=== PATIENT | female | born 1980 | race Caucasian/White ===

== ENCOUNTER 2019-11-04 18:04 | Inpatient (IN) | payer BC ==
[~2019-11-04] VITALS: Ht 175.3 cm; Wt 69.3 kg
--- NOTE | 2019-11-04 18:35 | PHYS DOC ---
Past Medical History Past Medical History: Anxiety Past Surgical History: No Surgical History Smoking Status: Never Smoker Alcohol Use: Heavy General Adult EDM: Chief Complaint: CHEST PAIN HPI: HPI: Patient is a 39 year old female who presents with complaints of chest pain. Patient reports that she was at the gym today and had been on the elliptical machine for about 5 minutes when she felt disconnected from the environment, associated with acute onset of diaphoresis, tingling going from the head into the arms, a hot feeling as well as chest pain. She reports this is a sharp pain that went from the back between the shoulder blades towards the left anterior chest wall. This lasted about 2 minutes and then resolved spontaneously. She felt poorly for about 5 to 10minutes. Patient denied any change in special senses, states that she is felt a change in exercise tolerance in the last few weeks noting that she is having some shortness of breath when she goes upstairs that is unusual. She reports that her work-ups have been okay and denies any chest pain with exercise. She also reports that she has been feeling well before this happened other than the above-mentioned shortness of breath, and that she is now back to baseline. Review of Systems: Review of Systems: Constitutional: Denies fever or chills. [] Eyes: Denies change in visual acuity. [] HENT: Denies nasal congestion or sore throat. [] Respiratory: See HPI. [] Cardiovascular: See HPI [] GI: Denies abdominal pain, nausea, vomiting, bloody stools or diarrhea. [] : Denies dysuria. [] Musculoskeletal: Denies back pain or joint pain. [] Integument: Denies rash. [] Neurologic: Denies headache, focal weakness.[] Endocrine: Denies polyuria or polydipsia. [] Lymphatic: Denies swollen glands. [] Psychiatric: Denies depression or anxiety. [] Heart Score: Risk Factors: Risk Factors: DM, Current or recent (<one month) smoker, HTN, HLP, family history of CAD, obesity. Risk Scores: Score 0 - 3: 2.5% MACE over next 6 weeks - Discharge Home Score 4 - 6: 20.3% MACE over next 6 weeks - Admit for Clinical Observation Score 7 - 10: 72.7% MACE over next 6 weeks - Early Invasive Strategies Allergies: Allergies: Allergies Coded Allergies Type Severity Reaction Last Updated Verified No Known Drug Allergies 11/04/19 No Physical Exam: PE: Constitutional: Well developed, well nourished, no acute distress, non-toxic appearance. [] HENT: Normocephalic, atraumatic, bilateral external ears normal, oropharynx moist, no oral exudates, nose normal. [] Eyes: PERRLA, EOMI, conjunctiva normal, no discharge. [] Neck: Normal range of motion, no tenderness, supple, no stridor. [] Cardiovascular:Heart rate regular rhythm, no murmur, no S3, no S4, no shift of POMI, pulses 2 out of 2 in the dorsalis pedis bilaterally [] Lungs & Thorax: Bilateral breath sounds clear to auscultation [] Abdomen: Bowel sounds normal, soft, no tenderness, no masses, no pulsatile masses. [] Skin: Warm, dry, no erythema, no rash. [] Back: No tenderness, no CVA tenderness. [] Extremities: No tenderness, no cyanosis, no clubbing, ROM intact, no edema. [] Neurologic: Alert and oriented X 3, normal motor function, normal sensory function, no focal deficits noted. [] Psychologic: Affect FRIGHTENED, judgement normal, mood ANXIOUS [] EKG: EKG: Heart rate 65 bpm, rightward axis, QRS widening with consideration of a right bundle branch block, T wave inversion in V2 [address] segment depression, consistent with ischemia VS OTHERS, abnormal ECG 2005 ECG heart rate 64 bpm, normal sinus rhythm, PAC, rightward axis, incomplete right bundle branch block, improvement of the ST segment depression in leads V2 through V4. [] Radiology/Procedures: Radiology/Procedures: [] Course & Med Decision Making: Course & Med Decision Making Pertinent Labs and Imaging studies reviewed. (See chart for details) 2026-patient was seen and reevaluated. Patient does have some mild orthostatic hypotension and was treated with some IV fluids for that. Her elevated troponin however with is concerning especially given her symptomatology. I discussed the case with Dr. Nobles who suggested we do a CTA of her chest and or wanted an echocardiogram. I also discussed the case with Dr. Harrison who agreed to admit the patient. Patient remains chest pain-free and is stable at this time. Note that the ST segment have resolved on her ECG [] Dragon Disclaimer: Petar Disclaimer: This electronic medical record was generated, in whole or in part, using a voice recognition dictation system. Departure Departure Impression: Primary Impression: Neurocardiogenic pre-syncope Additional Impressions: Elevated troponin I level Mild dehydration Referrals: UNKNOWN PCP NAME (PCP) Justicifation of Admission Dx: Justifications for Admission: Justification of Admission Dx: Yes Comments: Elevated troponin NIHSS Stroke Scale NIH Stroke Scale: NIH Stroke Scale Response (Comments) Value Level of Consciousness: 0 Alert/Responsive 0 LOC Questions: 0 Answers both correctly 0 LOC Commands: 0 Performs both tasks 0 Best Gaze: 0 Normal 0 Visual: 0 No visual loss 0 Facial Palsy: 0 Normal, symmetrical 0 Motor - Left Arm 0 No drift 0 Motor - Right Arm 0 No drift 0 Motor - Left Leg 0 No drift 0 Motor: Right Leg 0 No drift 0 Limb Ataxia: 0 Absent 0 Sensory: 0 No loss 0 Best Language: 0 Normal 0 Dysathria: 0 Normal 0 Extinction and Inattention: 0 Normal 0 Total 0 KASHMIR LEMON MD Nov 04, 2019 18:34
[2019-11-04 18:41] LABS: BASO # 0.1 x10^3/uL (0.0-0.2); BASO % 1 % (0-3); EOS # 0.1 x10^3/uL (0.0-0.7); EOS % 1 % (0-3); HEMATOCRIT 36.2 % (36.0-47.0); HEMOGLOBIN 12.1 g/dL (12.0-15.5); LYMPH # 1.4 x10^3/uL (1.0-4.8); LYMPH % 17 % (24-48); MEAN CORPUSCULAR HEMOGLOBIN 29 pg (25-35); MEAN CORPUSCULAR HGB CONC 33 g/dL (31-37); MEAN CORPUSCULAR VOLUME 88 fL (79-100); MONO # 0.7 x10^3/uL (0.0-1.1); MONO % 8 % (0-9); NEUT # 6.2 x10^3/uL (1.8-7.7); NEUT % 73 % (31-73); PLATELET COUNT 224 x10^3/uL (140-400); RED BLOOD COUNT 4.13 x10^6/uL (3.50-5.40); RED CELL DISTRIBUTION WIDTH 14.4 % (11.5-14.5); WHITE BLOOD COUNT 8.5 x10^3/uL (4.0-11.0)
[2019-11-04] MEDS ORDERED: IV NORMAL SALINE 1000ML BAG 1,000 ML IV ONE (18:45)
[2019-11-04 18:51] LABS: PROTHROMBIN TIME PATIENT 13.8 SEC (11.7-14.0)
[2019-11-04 18:58] LABS: BILIRUBIN,URINE NEGATIVE (NEG); CLARITY,URINE CLEAR; COLOR,URINE YELLOW; NITRITE,URINE NEGATIVE (NEG); PROTEIN,URINE NEGATIVE (NEG-TRACE); UROBILINOGEN,URINE 0.2 mg/dL (0.2 mg/dL)
[2019-11-04 19:04] LABS: BACTERIA,URINE MODERATE /HPF (0-FEW); SQUAMOUS EPITHELIAL CELL,UR MOD /LPF
[2019-11-04 19:05] LABS: BARBITURATES NEG (NEG); BENZODIAZEPINES NEG (NEG); CANNABINOIDS NEG (NEG); COCAINE NEG (NEG); METHADONE NEG (NEG); OPIATES NEG (NEG); PHENCYCLIDINE NEG (NEG); RBC,URINE 0 /HPF (0-2)
[2019-11-04 19:06] LABS: AMPHETAMINE/METHAMPHETAMINE NEG (NEG)
--- NOTE | 2019-11-04 19:09 | EKG ---
[facility] [address] [place] [address] Test Date: 2019-11-04 Test Time: 18:06:38 Pat Name: DERBA ADEN Department: Room: Gender: F Design Engineering Intern: : 1980 Requested By: KASHMIR LEMON Order Number: [id number] Reading MD: Darrick Coburn MD Measurements Intervals [place] Rate: 65 P: 61 [place]: 124 QRS: 99 QRSD: 118 T: 33 QT: 446 QTc: 465 Interpretive Statements SINUS RHYTHM RBBB Electronically Signed On 11-06-2019 13:47:48 CDT by Darrick Coburn MD
[2019-11-04 19:32] LABS: CALCIUM 8.9 mg/dL (8.5-10.1); CREATININE 0.8 mg/dL (0.6-1.0); GFR 80.3; POTASSIUM 3.8 mmol/L (3.5-5.1)
[2019-11-04 19:37] LABS: ALBUMIN 3.9 g/dL (3.4-5.0); ALBUMIN/GLOBULIN RATIO 1.2 (1.0-1.7); MAGNESIUM 1.9 mg/dL (1.8-2.4); TOTAL BILIRUBIN 0.5 mg/dL (0.2-1.0); TOTAL PROTEIN 7.2 g/dL (6.4-8.2)
[2019-11-04] MEDS ORDERED: ASPIRIN CHEWABLE 81 MG TABLET. PO ONE (19:45)
--- NOTE | 2019-11-04 20:06 | RAD ---
Study: CR CHEST PA LATERAL Indication: Chest pain. Comparison: None. Findings: The cardiomediastinal silhouette and reshma are unremarkable. No lobar consolidation, pleural effusion or pneumothorax. The lungs are hyperexpanded but the AP dimension of the thoracic cavity is not increased suggesting this to be physiologic from aggressive inspiratory excursion. Grossly intact osseous structures. Impression: No acute radiographic abnormality of the chest. Electronically signed by: KALI VASQUEZ MD (11/04/2019 8:04 PM) [id number]
[2019-11-04 20:40] LABS: U PREG PATIENT NEGATIVE (NEG)
[2019-11-04] MEDS ORDERED: ACETAMINOPHEN 325 MG TABLET. PO PRN (20:45)
[2019-11-04] MEDS ORDERED: CONTRAST GIVEN. MC PRN (20:45)
[2019-11-04] MEDS ORDERED: IOHEXOL 350 MG/ML 100 ML VIAL. IV ONE (21:00)
--- NOTE | 2019-11-04 21:23 | RAD ---
Study: CT CHEST WITH CONTRAST - PULMONARY ANGIOGRAM History: Chest pain. Comparison: None. Technique: Helical CT of the chest performed after the administration of 100 cc Omnipaque 350 intravenous contrast and timed for angiographic evaluation of the pulmonary arteries per PE protocol. Coronal and sagittal 3D MIP reformations were obtained. One or more of the following individualized dose reduction techniques were utilized for this examination: 1. Automated exposure control 2. Adjustment of the mA and/or kV according to patient size 3. Use of iterative reconstruction technique. Findings: Pulmonary Arteries: No main, lobar or segmental pulmonary embolism. Heart/Systemic Vasculature: Nonaneurysmal aorta. The visualized great vessels are patent. The left vertebral artery originates from the arch. No CT findings of overt right heart strain. Mediastinum: Within normal limits. Lungs: No airspace infiltrate, suspicious nodule, pleural effusion or pneumothorax. Neck/Axilla/Body Wall: Unremarkable. Upper Abdomen: No acute abnormality. Bones: No acute or aggressive osseous process. Mild levocurvature at the upper thoracic spine. Miscellaneous: None. IMPRESSION: No pulmonary embolism or other acute abnormality is seen to account for the patient's symptoms. Electronically signed by: KALI VASQUEZ MD (11/04/2019 9:20 PM) [id number]
[2019-11-04 22:37] VITALS: BP 117/62
[2019-11-04] MEDS ORDERED: ACET500T68 PO (23:25)
[2019-11-04] MEDS ORDERED: IBUP200T77 PO (23:25)
[2019-11-04 23:59] VITALS: BP 118/63
[2019-11-05] VITALS (18 sets, daily range): BP systolic 99–119; BP diastolic 48–77
[2019-11-05] MEDS ORDERED: HEPARIN for IV BOLUS 10,000 UNIT/10 ML VIAL. IV PRN (00:30)
[2019-11-05] MEDS ORDERED: HEPARIN 25,000UTS/250ML PREMIX 250 ML IV PRN (00:30)
[2019-11-05] MEDS ORDERED: ANTI-COAG MONITOR BY PHARMACY. MC PRN (00:45)
[2019-11-05] MEDS: AMIODARONE 450 MG in IV DEXTROSE 5% 250 ML IV PRN ×2 (00:50→09:55)
[2019-11-05] MEDS ORDERED: AMIODARONE 150 MG in IV DEXTROSE 5% 100ML 100 ML IV ONE (01:00)
--- NOTE | 2019-11-05 01:06 | NUR ---
This software writer signed into [employer] for this patient, scanned meds,and entered rate, etc, per assistance of Landon Ni and Taya Hassan
--- NOTE | 2019-11-05 08:11 | EKG ---
[facility] [address] [place] [address] Test Date: 2019-11-04 Test Time: 20:06:35 Pat Name: DEBRA ADEN Department: Room: Gender: F Facilities Operations Technician: : 1980 Requested By: KASHMIR LEMON Order Number: [id number] Reading MD: Measurements Intervals [place] Rate: 64 P: 56 [place]: 122 QRS: 100 QRSD: 116 T: 43 QT: 456 QTc: 475 Interpretive Statements SINUS RHYTHM ATRIAL PREMATURE COMPLEX(ES) RIGHTWARD AXIS INCOMPLETE RIGHT BUNDLE BRANCH BLOCK PROLONGED QT NO SPECIFIC ECG ABNORMALITIES RI6.01 No previous ECG available for comparison
--- NOTE | 2019-11-05 09:04 | PDOC2 ---
CARDIAC CONSULT DATE OF CONSULT Date of Consult DATE: 11/05/19 TIME: 08:50 REASON FOR CONSULT Reason for Consult: Elevated troponin REFERRING PHYSICIAN Referring Physician: Zaid SOURCE Source: Chart review, Patient HISTORY OF PRESENT ILLNESS HISTORY OF PRESENT ILLNESS This is a pleasant 39 yo active female admitted for complains of chest pain and dizziness. Reports that in the last 2 weeks she has been having episode of palpitations and pccasional dizziness. Also with some diaphoresis. She has noticed herself feeling more fatigue lately and gradually having some dyspnea with exertion just going upstairs in their 2 story house. She works out 3x a week starting of with about 15 min of cardio and 30 min of lifting wts. No recent injuries, falls or MVA. Yesterday she was at the gym and 4 minutes into elliptical she just had to stop since she started having shooting pain between her shoulder blades and also in her chest and some numbness to her arms and felt all the plethora of symptoms as mentioned. No passing out but still having some intermittent palpitations and dizziness. Positive for nausea as well. As an inpt she has had bouts of NSVT. Denies any childhood heart disease. No hx of VTE, recent infection, arrhythmias or CAD. No intractable coughing, no hx of bleeding or PUD. She does not have any significnat risk factors for CAD. 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 She is not on any medications. PAST MEDICAL HISTORY Past Medical History HPV, anxiety PAST SURGICAL HISTORY Past Surgical History: No pertinent history FAMILY HISTORY Family History noncontributory to CV SOCIAL HISTORY Smoke: No ALCOHOL: occassional Drugs: None Lives: with Family CURRENT MEDICATIONS CURRENT MEDICATIONS Current Medications Medications (Trade) Dose Ordered Sig/Davdi Route PRN Reason Start Time Stop Time Status Last Admin Dose Admin Sodium Chloride 1,000 ml @ 1,000 mls/hr 1X ONCE IV 11/04/19 18:45 11/04/19 19:44 DC 11/04/19 18:45 Iohexol (Omnipaque 350 Mg/ml) 100 ml 1X ONCE IV 11/04/19 21:00 11/04/19 21:01 DC 11/04/19 21:07 Amiodarone HCl 150 mg/Dextrose 103 ml @ 618 mls/hr 1X ONCE IV 11/05/19 01:00 11/05/19 02:12 DC 11/05/19 00:47 Amiodarone HCl 450 mg/Dextrose 259 ml @ 0 mls/hr CONT PRN IV SEE I/O RECORD 11/05/19 01:00 11/06/19 00:59 11/05/19 00:50 Info (Anti-Coagulation Monitoring By Pharmacy) 1 each PRN DAILY PRN MC SEE COMMENTS 11/05/19 00:45 11/05/19 00:39 ALLERGIES ALLERGIES: Coded Allergies: No Known Drug Allergies (Unverified , 11/04/19) ROS Review of System 14 point ROS evaluated with pertinent positives noted per HPI PHYSICAL EXAM General: Alert, Oriented X3, Cooperative HEENT: Atraumatic, Mucous membr. moist/pink Lungs: Clear to auscultation, Normal air movement Heart: Regular rate (SR), Normal S1, Normal S2, No murmurs Abdomen: Soft, No tenderness Extremities: No cyanosis, No edema Skin: No breakdown, No significant lesion Neuro: Normal speech, Sensation intact Psych/Mental Status: Mental status NL, Mood NL MUSCULOSKELETAL: Full range of motion without pain VITALS/I&O VITALS/I&O: Vital Signs Date Time Temp Pulse Resp B/P (MAP) Pulse Ox O2 Delivery O2 Flow Rate FiO2 11/05/19 03:00 98.0 81 20 111/57 (75) 100 Room Air 98.0 I & O 11/04/19 11/04/19 11/05/19 15:00 23:00 07:00 Intake Total 1000 ml 1100 ml Output Total 2150 ml Balance 1000 ml -1050 ml LABS Lab: Laboratory Tests Test 11/04/19 18:20 11/04/19 18:45 11/04/19 18:59 11/04/19 22:23 White Blood Count 8.5 x10^3/uL (4.0-11.0) Red Blood Count 4.13 x10^6/uL (3.50-5.40) Hemoglobin 12.1 g/dL (12.0-15.5) Hematocrit 36.2 % (36.0-47.0) Mean Corpuscular Volume 88 fL (79-100) Mean Corpuscular Hemoglobin 29 pg (25-35) Mean Corpuscular Hemoglobin Concent 33 g/dL (31-37) Red Cell Distribution Width 14.4 % (11.5-14.5) Platelet Count 224 x10^3/uL (140-400) Neutrophils (%) (Auto) 73 % (31-73) Lymphocytes (%) (Auto) 17 % (24-48) L Monocytes (%) (Auto) 8 % (0-9) Eosinophils (%) (Auto) 1 % (0-3) Basophils (%) (Auto) 1 % (0-3) Neutrophils # (Auto) 6.2 x10^3/uL (1.8-7.7) Lymphocytes # (Auto) 1.4 x10^3/uL (1.0-4.8) Monocytes # (Auto) 0.7 x10^3/uL (0.0-1.1) Eosinophils # (Auto) 0.1 x10^3/uL (0.0-0.7) Basophils # (Auto) 0.1 x10^3/uL (0.0-0.2) Prothrombin Time 13.8 SEC (11.7-14.0) Prothrombin Time INR 1.1 (0.8-1.1) Activated Partial Thromboplast Time 25 SEC (24-38) Urine Collection Type Unknown Urine Color Yellow Urine Clarity Clear Urine pH 6.0 (<5.0-8.0) Urine Specific [place] 1.015 (1.000-1.030) Urine Protein Negative mg/dL (NEG-TRACE) Urine Glucose (UA) Negative mg/dL (NEG) Urine Ketones (Stick) 40 mg/dL (NEG) Urine Blood Negative (NEG) Urine Nitrite Negative (NEG) Urine Bilirubin Negative (NEG) Urine Urobilinogen Dipstick 0.2 mg/dL (0.2 mg/dL) Urine Leukocyte Esterase Large (NEG) Urine RBC 0 /HPF (0-2) Urine WBC 5-10 /HPF (0-4) Urine Squamous Epithelial Cells Mod /LPF Urine Bacteria Moderate /HPF (0-FEW) Urine Mucus Mod /LPF Urine Test Negative (NEG) Urine Opiates Screen Neg (NEG) Urine Methadone Screen Neg (NEG) Urine Barbiturates Neg (NEG) Urine Phencyclidine Screen Neg (NEG) Urine Amphetamine/Methamphetamine Neg (NEG) Urine Benzodiazepines Screen Neg (NEG) Urine Cocaine Screen Neg (NEG) Urine Cannabinoids Screen Neg (NEG) Urine Ethyl Alcohol Neg (NEG) Sodium Level 139 mmol/L (136-145) Potassium Level 3.8 mmol/L (3.5-5.1) Chloride Level 103 mmol/L (98-107) Carbon Dioxide Level 23 mmol/L (21-32) Anion Gap 13 (6-14) Blood Urea Nitrogen 12 mg/dL (7-20) Creatinine 0.8 mg/dL (0.6-1.0) Estimated GFR (Cockcroft-Gault) 80.3 BUN/Creatinine Ratio 15 (6-20) Glucose Level 117 mg/dL (70-99) H Lactic Acid Level 1.9 mmol/L (0.4-2.0) Calcium Level 8.9 mg/dL (8.5-10.1) Magnesium Level 1.9 mg/dL (1.8-2.4) Total Bilirubin 0.5 mg/dL (0.2-1.0) Aspartate Amino Transferase (AST) 18 U/L (15-37) Alanine Aminotransferase (ALT) 21 U/L (14-59) Alkaline Phosphatase 52 U/L (46-116) Troponin I Quantitative 0.071 ng/mL (0.000-0.055) 3.087 ng/mL (0.000-0.055) JX-Gvu-L-Type Natriuretic Peptide 29 pg/mL (0-124) Total Protein 7.2 g/dL (6.4-8.2) Albumin 3.9 g/dL (3.4-5.0) Albumin/Globulin Ratio 1.2 (1.0-1.7) Thyroid Stimulating Hormone (TSH) 2.893 uIU/mL (0.358-3.74) Test 11/05/19 08:05 Troponin I Quantitative 25.974 ng/mL (0.000-0.055) Laboratory Tests 11/04/19 18:20 Laboratory Tests 11/04/19 18:59 ASSESSMENT/PLAN ASSESSMENT/PLAN 1. NSTEMI: possible SCAD 2. New RBBB: trop at 26 3. Excessive caffeine use 4. NSVT 5. UTI: per PCP Recommendations 1. Mg replacement. check lipids, TSH and TTE 2. LHC today, risks and benefits discussed with pt and spouse, agreeable to proceed 3. Heparin drip ongoing and amiodarone. DAY SAMPSON APRN Nov 05, 2019 09:04
--- NOTE | 2019-11-05 09:39 | NUR ---
SS following for discharge planning. SS reviewed pt chart and discussed with pt RN. Pt is from home with spouse and is currently on room air. Pt on Heparin and Amiodarone drip. Pt scheduled for heart cath today. SS will continue to follow for discharge planning.
[2019-11-05] MEDS ORDERED: MAGNESIUM SULFATE 2GM 50 ML IV ONE (09:45)
[2019-11-05 10:08] LABS: CHOLESTEROL/HDL RATIO 1.4
[2019-11-05] MEDS ORDERED: LIDOCAINE 1% Multi-Dose 20 ML VIAL. ONE (10:35)
[2019-11-05] MEDS ORDERED: HEPARIN for ARTERIAL LINE 1,500 ML ONE (10:35)
[2019-11-05] MEDS ORDERED: IOHEXOL 300 MG/ML 100ML VIAL. ONE (10:35)
[2019-11-05] MEDS ORDERED: MIDAZOLAM HCL/PF 5 MG/5 ML VIAL. ONE (10:48)
[2019-11-05] MEDS ORDERED: fentaNYL PF VIAL 100 MCG/2 ML VIAL ONE (10:48)
--- NOTE | 2019-11-05 11:02 | PDOC ---
MODERATE SEDATION ASSESSMENT RISKS/ALTERNATIVES Risks/Alternatives Risks and alternatives of this type of sedation and procedure discussed with: RISK/ALTERNATIVES: Patient H & P ON CHART H & P H & P on chart and reviewed for co-morbid conditions and appropriate labs. H&P ON CHART: Yes STATUS PREG STATUS ASSESSED: Yes MEDS/ALLERGIES REVIEWED Meds/Allergies Reviewed Medications and Allergies including time and route of recently administered narcotics and sedatives. MEDS/ALLERGIES REVIEWED: Yes ASA RATING ASA RATING: II AIRWAY ASSESSMENT Airway Assessment Airway patency, oral function limitations, presence of caps, crowns, dentures, partials, and ability to extend neck assessed. AIRWAY ASSESSMENT: Yes MALLAMPATI SCORE MALLAMPATI SCORE: II PRE-SEDATION ASSESSMENT PRE-SEDATION ASSESSMENT: Yes PARK SANCHEZ MD Nov 05, 2019 11:02
[2019-11-05] MEDS ORDERED: IOHEXOL 300 MG/ML 100ML VIAL. IART ONE (11:30)
[2019-11-05] MEDS ORDERED: MIDAZOLAM HCL/PF 5 MG/5 ML VIAL. IV ONE (11:30)
[2019-11-05] MEDS ORDERED: LIDOCAINE 1% Multi-Dose 20 ML VIAL. INJ ONE (11:30)
[2019-11-05] MEDS ORDERED: fentaNYL PF VIAL 100 MCG/2 ML VIAL IV ONE (11:30)
[2019-11-05] MEDS ORDERED: CONTRAST GIVEN. MC PRN (11:45)
[2019-11-05] MEDS ORDERED: 0.9 % SODIUM CHLORIDE 10 ML DISP.SYRIN. IV PRN (12:00)
[2019-11-05] MEDS ORDERED: NITROGLYCERIN SUBLINGUAL 0.4 MG BOTTLE OF 25. SL PRN (12:00)
[2019-11-05] MEDS ORDERED: IV NORMAL SALINE 1000ML BAG 1,000 ML IV SCH (12:00)
[2019-11-05] MEDS ORDERED: AMIODARONE 450 MG in IV DEXTROSE 5% 250 ML IV PRN (13:00)
[2019-11-05] MEDS ORDERED: METHOCARBAMOL 750 MG TABLET PO PRN (14:30)
--- NOTE | 2019-11-05 14:33 | PDOC1 ---
History and Physical Date of Admission Date of Admission 11/05/2019 Identification/Chief Complaint Chief Complaint My chest hurts Source Source: Chart review, Patient History of Present Illness History of Present Illness Patient is a 39-year-old female with no significant past medical history who was in her usual state of health until approximately 2 weeks prior to her admission when she started complaining of palpitations and lightheadedness. The patient described the pain review of systems pertinent as per HPI otherwise 14 point review of system is negative a sharp discomfort over the precordial area that radiated to the back and no radiation to the jaw or the arm was reported. This was in the setting of exercising and an elliptical machine. The patient denied any dyspnea on exertion she denied orthopnea paroxysmal nocturnal dyspnea. Patient did not have sensation of impending doom or diaphoresis with the event. Patient denies loss of consciousness no neurological deficits no dysphagia o dynophagia no abdominal pain no nausea vomiting diarrhea and no urinary symptoms either. Patient had progressive nature of her symptoms and decided to consult the emergency department where she was found to have an elevated troponin and he was evaluated by cardiology very promptly and taken to the cardiac English Language Learner Teacher for evaluation. Past Medical History Past Medical History anxiety Past Surgical History Past Surgical History: No pertinent history Family History Family History: Other Social History Smoke: No ALCOHOL: occassional Drugs: None Current Problem List Problem List Problems Medical Problems: (1) Elevated troponin I level Status: Acute (2) Mild dehydration Status: Acute (3) Neurocardiogenic pre-syncope Status: Acute Current Medications Current Medications Current Medications Medications (Trade) Dose Ordered Sig/David Start Time Stop Time Status Last Admin Dose Admin Acetaminophen (Tylenol) 650 mg PRN Q4HRS PRN 11/04/19 20:45 11/05/19 20:44 Amiodarone HCl 150 mg/Dextrose 103 ml @ 618 mls/hr 1X ONCE 11/05/19 01:00 11/05/19 02:12 DC 11/05/19 00:47 618 MLS/HR Amiodarone HCl 450 mg/Dextrose 259 ml @ 0 mls/hr CONT PRN 11/05/19 13:00 Aspirin (Aspirin Chewable) 162 mg 1X ONCE 11/04/19 19:45 11/04/19 19:46 DC Aspirin (Ecotrin) 81 mg [id number] 11/06/19 08:00 Fentanyl Citrate (Fentanyl 2ml Vial) 100 mcg 1X ONCE 11/05/19 11:30 11/05/19 11:42 DC 11/05/19 11:55 37.5 MCG Heparin Sodium (Porcine) (Heparin Sodium) 1,750 unit PRN Q6HRS PRN 11/05/19 00:30 Heparin Sodium/ Dextrose 250 ml @ 0 mls/hr CONT PRN 11/05/19 00:30 Heparin Sodium/ Sodium Chloride (HEPARIN for ARTERIAL LINE FLUSH) 1,000 unit 1X ONCE 11/05/19 11:30 11/05/19 11:42 DC 11/05/19 11:52 1,000 UNIT Info (Anti-Coagulation Monitoring By Pharmacy) 1 each PRN DAILY PRN 11/05/19 00:45 11/05/19 00:39 1 EACH Info (CONTRAST GIVEN -- Rx MONITORING) 1 each PRN DAILY PRN 11/05/19 11:45 11/07/19 11:44 Iohexol (Omnipaque 300 Mg/ml) 100 ml 1X ONCE 11/05/19 11:30 11/05/19 11:42 DC 11/05/19 11:52 43 ML Iohexol (Omnipaque 350 Mg/ml) 100 ml 1X ONCE 11/04/19 21:00 11/04/19 21:01 DC 11/04/19 21:07 100 ML Lidocaine HCl (Lidocaine 1% 20ml Vial) 20 ml 1X ONCE 11/05/19 11:30 11/05/19 11:42 DC 11/05/19 11:52 18 ML Magnesium Sulfate 50 ml @ 25 mls/hr 1X ONCE 11/05/19 09:45 11/05/19 11:44 DC 11/05/19 09:54 25 MLS/HR Metoprolol Tartrate (Lopressor) 12.5 mg BID 11/05/19 21:00 Midazolam HCl (Versed) 5 mg 1X ONCE 11/05/19 11:30 11/05/19 11:42 DC 11/05/19 11:55 3 MG Nitroglycerin (Nitrostat) 0.4 mg PRN Q5MIN PRN 11/05/19 12:00 Sodium Chloride 1,000 ml @ 75 mls/hr [id number] 11/05/19 12:00 11/05/19 19:59 Sodium Chloride (Normal Saline Flush) 3 ml QSHIFT PRN 11/05/19 12:00 Allergies Allergies Allergies Coded Allergies Type Severity Reaction Last Updated Verified No Known Drug Allergies 11/04/19 No ROS Review of System CONSTITUTIONAL: No fever or chills EYES: No recent changes SKIN: No rash or itching CARDIOVASCULAR: No chest pain, syncope, palpitations, or edema RESPIRATORY: No SOB or cough GASTROINTESTINAL: No nausea, vomiting or abdominal pain NEUROLOGICAL: No headaches or weakness ENDOCRINE: No cold or heat intolerance GENITOURINARY: No urgency or frequency of urination MUSCULOSKELETAL: No back pain or joint pain LYMPHATICS: No enlarged lymph nodes PSYCHIATRIC: No anxiety or depression Physical Exam Physical Exam GEN.: No apparent distress. Alert and oriented. HEENT: Head is normocephalic, atraumatic NECK: Supple. LUNGS: Clear to auscultation. HEART: RRR, S1, S2 present. Peripheral pulses intact ABDOMEN: Soft, nontender. Positive bowel sounds. EXTREMITIES: Without any cyanosis. NEUROLOGIC: Normal speech, normal tone PSYCHIATRIC: Normal affect, normal mood. SKIN: No ulcerations Vitals Vitals Vital Signs Date Time Temp Pulse Resp B/P (MAP) Pulse Ox O2 Delivery O2 Flow Rate FiO2 11/05/19 13:40 83 18 99 Room Air 11/05/19 11:55 2.0 11/05/19 11:00 97.9 119/77 (91) 97.9 Labs Labs Laboratory Tests Test 11/04/19 18:20 11/04/19 18:45 11/04/19 18:59 11/04/19 22:23 White Blood Count 8.5 x10^3/uL (4.0-11.0) Red Blood Count 4.13 x10^6/uL (3.50-5.40) Hemoglobin 12.1 g/dL (12.0-15.5) Hematocrit 36.2 % (36.0-47.0) Mean Corpuscular Volume 88 fL (79-100) Mean Corpuscular Hemoglobin 29 pg (25-35) Mean Corpuscular Hemoglobin Concent 33 g/dL (31-37) Red Cell Distribution Width 14.4 % (11.5-14.5) Platelet Count 224 x10^3/uL (140-400) Neutrophils (%) (Auto) 73 % (31-73) Lymphocytes (%) (Auto) 17 % (24-48) Monocytes (%) (Auto) 8 % (0-9) Eosinophils (%) (Auto) 1 % (0-3) Basophils (%) (Auto) 1 % (0-3) Neutrophils # (Auto) 6.2 x10^3/uL (1.8-7.7) Lymphocytes # (Auto) 1.4 x10^3/uL (1.0-4.8) Monocytes # (Auto) 0.7 x10^3/uL (0.0-1.1) Eosinophils # (Auto) 0.1 x10^3/uL (0.0-0.7) Basophils # (Auto) 0.1 x10^3/uL (0.0-0.2) Prothrombin Time 13.8 SEC (11.7-14.0) Prothromb Time International Ratio 1.1 (0.8-1.1) Activated Partial Thromboplast Time 25 SEC (24-38) Urine Collection Type Unknown Urine Color Yellow Urine Clarity Clear Urine pH 6.0 (<5.0-8.0) Urine Specific [place] 1.015 (1.000-1.030) Urine Protein Negative mg/dL (NEG-TRACE) Urine Glucose (UA) Negative mg/dL (NEG) Urine Ketones (Stick) 40 mg/dL (NEG) Urine Blood Negative (NEG) Urine Nitrite Negative (NEG) Urine Bilirubin Negative (NEG) Urine Urobilinogen Dipstick 0.2 mg/dL (0.2 mg/dL) Urine Leukocyte Esterase Large (NEG) Urine RBC 0 /HPF (0-2) Urine WBC 5-10 /HPF (0-4) Urine Squamous Epithelial Cells Mod /LPF Urine Bacteria Moderate /HPF (0-FEW) Urine Mucus Mod /LPF Urine Test Negative (NEG) Urine Opiates Screen Neg (NEG) Urine Methadone Screen Neg (NEG) Urine Barbiturates Neg (NEG) Urine Phencyclidine Screen Neg (NEG) Urine Amphetamine/Methamphetamine Neg (NEG) Urine Benzodiazepines Screen Neg (NEG) Urine Cocaine Screen Neg (NEG) Urine Cannabinoids Screen Neg (NEG) Urine Ethyl Alcohol Neg (NEG) Sodium Level 139 mmol/L (136-145) Potassium Level 3.8 mmol/L (3.5-5.1) Chloride Level 103 mmol/L (98-107) Carbon Dioxide Level 23 mmol/L (21-32) Anion Gap 13 (6-14) Blood Urea Nitrogen 12 mg/dL (7-20) Creatinine 0.8 mg/dL (0.6-1.0) Estimated GFR (Cockcroft-Gault) 80.3 BUN/Creatinine Ratio 15 (6-20) Glucose Level 117 mg/dL (70-99) Lactic Acid Level 1.9 mmol/L (0.4-2.0) Calcium Level 8.9 mg/dL (8.5-10.1) Magnesium Level 1.9 mg/dL (1.8-2.4) Total Bilirubin 0.5 mg/dL (0.2-1.0) Aspartate Amino Transf (AST/SGOT) 18 U/L (15-37) Alanine Aminotransferase (ALT/SGPT) 21 U/L (14-59) Alkaline Phosphatase 52 U/L (46-116) Troponin I Quantitative 0.071 ng/mL (0.000-0.055) 3.087 ng/mL (0.000-0.055) NU-Bex-H-Type Natriuretic Peptide 29 pg/mL (0-124) Total Protein 7.2 g/dL (6.4-8.2) Albumin 3.9 g/dL (3.4-5.0) Albumin/Globulin Ratio 1.2 (1.0-1.7) Thyroid Stimulating Hormone (TSH) 2.893 uIU/mL (0.358-3.74) Test 11/05/19 08:05 11/05/19 09:30 Heparin Anti-Xa Act, Unfractionated 0.31 IU/mL (0.30-0.70) Troponin I Quantitative 25.974 ng/mL (0.000-0.055) Triglycerides Level 32 mg/dL (0-150) Cholesterol Level 140 mg/dL (0-200) LDL Cholesterol, Calculated 34 mg/dL (0-100) VLDL Cholesterol, Calculated 6 mg/dL (0-40) Non-HDL Cholesterol Calculated 40 mg/dL (0-129) HDL Cholesterol 100 mg/dL (40-60) Cholesterol/HDL Ratio 1.4 SARS-CoV-2 Antigen (Rapid) Negative (NEGATIVE) Laboratory Tests Test 11/04/19 18:20 11/04/19 18:45 11/04/19 18:59 11/04/19 22:23 White Blood Count 8.5 x10^3/uL (4.0-11.0) Red Blood Count 4.13 x10^6/uL (3.50-5.40) Hemoglobin 12.1 g/dL (12.0-15.5) Hematocrit 36.2 % (36.0-47.0) Mean Corpuscular Volume 88 fL (79-100) Mean Corpuscular Hemoglobin 29 pg (25-35) Mean Corpuscular Hemoglobin Concent 33 g/dL (31-37) Red Cell Distribution Width 14.4 % (11.5-14.5) Platelet Count 224 x10^3/uL (140-400) Neutrophils (%) (Auto) 73 % (31-73) Lymphocytes (%) (Auto) 17 % (24-48) Monocytes (%) (Auto) 8 % (0-9) Eosinophils (%) (Auto) 1 % (0-3) Basophils (%) (Auto) 1 % (0-3) Neutrophils # (Auto) 6.2 x10^3/uL (1.8-7.7) Lymphocytes # (Auto) 1.4 x10^3/uL (1.0-4.8) Monocytes # (Auto) 0.7 x10^3/uL (0.0-1.1) Eosinophils # (Auto) 0.1 x10^3/uL (0.0-0.7) Basophils # (Auto) 0.1 x10^3/uL (0.0-0.2) Prothrombin Time 13.8 SEC (11.7-14.0) Prothromb Time International Ratio 1.1 (0.8-1.1) Activated Partial Thromboplast Time 25 SEC (24-38) Urine Collection Type Unknown Urine Color Yellow Urine Clarity Clear Urine pH 6.0 (<5.0-8.0) Urine Specific [place] 1.015 (1.000-1.030) Urine Protein Negative mg/dL (NEG-TRACE) Urine Glucose (UA) Negative mg/dL (NEG) Urine Ketones (Stick) 40 mg/dL (NEG) Urine Blood Negative (NEG) Urine Nitrite Negative (NEG) Urine Bilirubin Negative (NEG) Urine Urobilinogen Dipstick 0.2 mg/dL (0.2 mg/dL) Urine Leukocyte Esterase Large (NEG) Urine RBC 0 /HPF (0-2) Urine WBC 5-10 /HPF (0-4) Urine Squamous Epithelial Cells Mod /LPF Urine Bacteria Moderate /HPF (0-FEW) Urine Mucus Mod /LPF Urine Test Negative (NEG) Urine Opiates Screen Neg (NEG) Urine Methadone Screen Neg (NEG) Urine Barbiturates Neg (NEG) Urine Phencyclidine Screen Neg (NEG) Urine Amphetamine/Methamphetamine Neg (NEG) Urine Benzodiazepines Screen Neg (NEG) Urine Cocaine Screen Neg (NEG) Urine Cannabinoids Screen Neg (NEG) Urine Ethyl Alcohol Neg (NEG) Sodium Level 139 mmol/L (136-145) Potassium Level 3.8 mmol/L (3.5-5.1) Chloride Level 103 mmol/L (98-107) Carbon Dioxide Level 23 mmol/L (21-32) Anion Gap 13 (6-14) Blood Urea Nitrogen 12 mg/dL (7-20) Creatinine 0.8 mg/dL (0.6-1.0) Estimated GFR (Cockcroft-Gault) 80.3 BUN/Creatinine Ratio 15 (6-20) Glucose Level 117 mg/dL (70-99) Lactic Acid Level 1.9 mmol/L (0.4-2.0) Calcium Level 8.9 mg/dL (8.5-10.1) Magnesium Level 1.9 mg/dL (1.8-2.4) Total Bilirubin 0.5 mg/dL (0.2-1.0) Aspartate Amino Transf (AST/SGOT) 18 U/L (15-37) Alanine Aminotransferase (ALT/SGPT) 21 U/L (14-59) Alkaline Phosphatase 52 U/L (46-116) Troponin I Quantitative 0.071 ng/mL (0.000-0.055) 3.087 ng/mL (0.000-0.055) VD-Beh-I-Type Natriuretic Peptide 29 pg/mL (0-124) Total Protein 7.2 g/dL (6.4-8.2) Albumin 3.9 g/dL (3.4-5.0) Albumin/Globulin Ratio 1.2 (1.0-1.7) Thyroid Stimulating Hormone (TSH) 2.893 uIU/mL (0.358-3.74) Test 11/05/19 08:05 11/05/19 09:30 Heparin Anti-Xa Act, Unfractionated 0.31 IU/mL (0.30-0.70) Troponin I Quantitative 25.974 ng/mL (0.000-0.055) Triglycerides Level 32 mg/dL (0-150) Cholesterol Level 140 mg/dL (0-200) LDL Cholesterol, Calculated 34 mg/dL (0-100) VLDL Cholesterol, Calculated 6 mg/dL (0-40) Non-HDL Cholesterol Calculated 40 mg/dL (0-129) HDL Cholesterol 100 mg/dL (40-60) Cholesterol/HDL Ratio 1.4 SARS-CoV-2 Antigen (Rapid) Negative (NEGATIVE) VTE Prophylaxis Ordered VTE Prophylaxis Devices: Yes VTE Pharmacological Prophylaxi: Yes Assessment/Plan Assessment/Plan Non-STEMI with possible aortic dissection New right bundle branch block Troponin elevation at 26 History of excessive caffeine use Nonsustained V. tach Asymptomatic bacteriuria Plan Continue with medications as per cardiology Supportive measures Left heart catheterization as per systems consultant We will follow-up on TSH Heparin drip as per cardiology Further recommendations based on the clinical course Justicifation of Admission Dx: Justifications for Admission: Justification of Admission Dx: Yes RIKKI BUNN MD Nov 05, 2019 14:33
--- NOTE | 2019-11-05 15:54 | CARD ---
MR#: [id number] Date of Study: 11/05/2019 Ordering Physician: DAY DE ANDA, Referring Physician: DAY DE ANDA, Tech: GERARDO CARTY RTR APPROVED REPORT Procedures Selective coronary angiogram. The patient is a 39-year-old female who developed episodes of chest discomfort yesterday while exerci sing. She was brought to the emergency room. Initial EKG showed some lateral ST depression but the patient had no ST elevation. Her EKG returned to baseline after treatment with heparin. Initial tro ponins were minimally elevated but increased to 25 overnight. She remained pain-free throughout the night and morning. In this setting a cardiac catheterization was recommended to evaluate possible co ronary disease. Risks and benefits as well as alternatives were discussed. The patient agreed to pr oceed with a heart catheterization. After informed consent was obtained the patient was brought to the heart catheterization lab. The ar ea of the right femoral artery was prepared in the usual manner with Betadine, sterile draping and lo greyson anesthetic. An 18-gauge needle was used to enter the right femoral artery, a wire placed and a 6 Cymro sheath placed over the wire. With the assistance of a J-wire, a 6 Cymro JL4 diagnostic cath eter was advanced to the ascending aorta. It was used to engage the left system and sequential injec tions in various views were obtained. Following this a Dm right 6 Cymro diagnostic catheter w as placed the ascending aorta. It was used for sequential injections of the right coronary artery. The patient's anatomy was reviewed. She had distal small vessel disease in her left circumflex. The lesion appeared to have significant thrombosis and was thought to be a possible spontaneous coronary dissection. It was very distal and a small vessel with and a T involved side branch. After review with Dr. Steel, we will continue the patient on medical treatment including anticoagulation and an tiplatelet medication. The sheath was removed and an Angio-Seal product was used to seal the punctu re point. The patient was moved to the holding area. She remained pain-free throughout the procedur e. Findings. Hemodynamics. Aortic root pressure of 102/60. Coronaries. Left main. The left main was a normal size vessel. It had no lesions. Left anterior descending. The LAD was a moderate size vessel the which is extended around the apex o f the left ventricle. It had no lesions. Left circumflex. The left circumflex was a moderate size vessel that tapered to a smaller distal ves susanne. Distally in the vessel there was a lesion involving a involving the distal circumflex as well a s a side branch which came caught came off at a 90 degree angle. This did appear to be a area of pro bable thrombosis and a possible spontaneous dissection. Right coronary artery. The right coronary was a moderate size vessel. It had no lesions. <Conclusion> Single vessel coronary artery disease with a small distal left circumflex lesion involving a 90 degre e takeoff of a side branch. This appears to be a thrombotic lesion and may represent a spontaneous c oronary dissection. Due to its small distal location with limited post lesion flow and the possibili ty of a dissection we will initially treat the lesion medically as outlined above. These findings an d treatment options were discussed with the patient. Signed by : Jarod Judd MD Electronically Approved : 11/05/2019 15:54:17
[2019-11-05] MEDS: ATORVASTATIN CALCIUM 10 MG TABLET. PO SCH (20:51)
[2019-11-05] MEDS: METOPROLOL TART IMMED RELEASE 25 MG TABLET. PO SCH (20:51)
[2019-11-05] MEDS ORDERED: ACETAMINOPHEN 325 MG TABLET. PO PRN (22:30)
[2019-11-06 03:10] VITALS: BP 114/59
[2019-11-06 06:02] LABS: HEMATOCRIT 38.9 % (36.0-47.0); HEMOGLOBIN 12.9 g/dL (12.0-15.5); RED BLOOD COUNT 4.39 x10^6/uL (3.50-5.40); RED CELL DISTRIBUTION WIDTH 14.6 % (11.5-14.5); WHITE BLOOD COUNT 7.2 x10^3/uL (4.0-11.0)
[2019-11-06 07:00] VITALS: BP 114/57
[2019-11-06] MEDS: ASPIRIN ENTERIC COATED 81 MG TABLET.DR. PO SCH (10:03)
[2019-11-06] MEDS: METOPROLOL TART IMMED RELEASE 25 MG TABLET. PO SCH ×2 (10:03→21:47)
[2019-11-06 11:00] VITALS: BP 110/49
[2019-11-06] MEDS: CLOPIDOGREL BISULFATE 75 MG TABLET PO SCH (12:18)
[2019-11-06] MEDS: AMIODARONE HCL 200 MG TABLET. PO SCH (12:18)
--- NOTE | 2019-11-06 12:25 | CARD ---
MR#: [id number] Date of Study: 11/05/2019 Ordering Physician: DAY DE ANDA, Referring Physician: DAY DE ANDA, Tech: Irais Rosario APPROVED REPORT EXAM: Two-dimensional and M-mode echocardiogram with Doppler and color Doppler. Other Information Quality : AverageHR: 65bpm INDICATION Non STEMI 2D DIMENSIONS Left Atrium(2D)2.7 (1.6-4.0cm)IVSd1.1 (0.7-1.1cm) Aortic Root(2D)2.6 (2.0-3.7cm)LVDd4.2 (3.9-5.9cm) LVOT Diameter1.9 (1.8-2.4cm)PWd1.1 (0.7-1.1cm) LVDs2.7 (2.5-4.0cm)FS (%) 35.8 % SV52.3 ml Aortic Valve AoV Peak Marco.110.3cm/sAoV VTI21.6cm AO Peak GR.4.9mmHgLVOT VTI 16.75cm AO Mean GR.3mmHg Mitral Valve MV E Qhgcknnc77.6cm/sMV E Peak Gr.3mmHg MV DECEL [id number] A Pujxfsas21.2cm/s MV E Mean Gr.1mmHgE/A Ratio1.7 TDI Lateral E' P. V11.26cm/sMedial E' P. V9.65cm/s E/Lateral E'6.5E/Medial E'7.6 Tricuspid Valve TR P. [id number]/sRAP [id number] TR Peak Gr.[id number] LEFT VENTRICLE The left ventricle is normal size. There is normal left ventricular wall thickness. The left ventricu lar systolic function is normal and the ejection fraction is within normal range. The Ejection Fracti on is 50-55%. There is normal LV segmental wall motion. The left ventricular diastolic function and f illing is normal for age. RIGHT VENTRICLE The right ventricle is normal size. There is normal right ventricular wall thickness. The right ventr icular systolic function is normal. ATRIA The left atrium size is normal. The right atrium size is normal. The interatrial septum is intact wit h no evidence for an atrial septal defect or patent foramen ovale as noted on 2-D or Doppler imaging. AORTIC VALVE The aortic valve is normal in structure and function. Doppler and Color Flow revealed no significant aortic regurgitation. Calculated aortic valve area is 2.43 cm2 with maximum pressure gradient of 5 mm Hg and mean pressure gradient of 3 mmHg. There is no significant aortic valvular stenosis. MITRAL VALVE The mitral valve is normal in structure and function. There is no evidence of mitral valve prolapse. There is no mitral valve stenosis. Doppler and Color-flow revealed trace mitral regurgitation. TRICUSPID VALVE The tricuspid valve is normal in structure and function. Doppler and Color Flow revealed trace tricus pid regurgitation with an estimated PAP of 23 mmHg. There is no tricuspid valve stenosis. PULMONIC VALVE The pulmonic valve is not well visualized. Doppler and Color Flow revealed no pulmonic valvular regur gitation. GREAT VESSELS The aortic root is normal in size. The IVC is normal in size and collapses >50% with inspiration. PERICARDIAL EFFUSION There is no evidence of significant pericardial effusion. Critical Notification Critical Value: No <Conclusion> The left ventricle is normal size. The left ventricular systolic function is normal and the ejection fraction is within normal range. The Ejection Fraction is 50-55%. There is normal LV segmental wall motion. Doppler and Color Flow revealed no significant aortic regurgitation. There is no significant aortic valvular stenosis. Doppler and Color-flow revealed trace mitral regurgitation. Doppler and Color Flow revealed trace tricuspid regurgitation with an estimated PAP of 23 mmHg. Signed by : Jarod Judd MD Electronically Approved : 11/06/2019 12:24:40
--- NOTE | 2019-11-06 13:02 | NUR ---
SS following up with discharge planning. SS reviewed pt chart and discussed with pt RN. Pt is currently on room air. Pt on Heparin drip. Discharge plan is to home when medically ready. SS will continue to follow for discharge planning.
--- NOTE | 2019-11-06 13:27 | PDOC ---
PROGRESS NOTES Date of Service: DATE: 11/06/19 TIME: 13:24 Chief Complaint Chief Complaint Non-STEMI with spontaneous coronary artery dissection New right bundle branch block Troponin elevation at 26 History of excessive caffeine use Nonsustained V. tach Asymptomatic bacteriuria Plan Continue with medications as per cardiology Supportive measures Left heart catheterization as per speech correction consultant done, will follow recs from speech correction consultant We will follow-up on TSH Heparin drip as per cardiology Further recommendations based on the clinical course History of Present Illness History of Present Illness No acute events reported overnight, case discussed with nursing staff patient in no acute distress no complaints during my visit Vitals Vitals Vital Signs Date Time Temp Pulse Resp B/P (MAP) Pulse Ox O2 Delivery O2 Flow Rate FiO2 11/06/19 12:18 65 11/06/19 11:00 98.5 20 110/49 (69) 100 Room Air 98.5 11/05/19 11:55 2.0 Physical Exam General: Alert, Oriented X3, Cooperative Heart: Regular rate (SR), Normal S1, Normal S2, No murmurs Abdomen: Soft, No tenderness Extremities: No cyanosis, No edema Skin: No breakdown, No significant lesion Labs LABS Laboratory Tests Test 11/05/19 20:40 11/06/19 05:30 11/06/19 12:10 Heparin Anti-Xa Act, Unfractionated 0.21 IU/mL (0.30-0.70) 0.49 IU/mL (0.30-0.70) 0.50 IU/mL (0.30-0.70) White Blood Count 7.2 x10^3/uL (4.0-11.0) Red Blood Count 4.39 x10^6/uL (3.50-5.40) Hemoglobin 12.9 g/dL (12.0-15.5) Hematocrit 38.9 % (36.0-47.0) Mean Corpuscular Volume 89 fL (79-100) Mean Corpuscular Hemoglobin 30 pg (25-35) Mean Corpuscular Hemoglobin Concent 33 g/dL (31-37) Red Cell Distribution Width 14.6 % (11.5-14.5) Platelet Count 204 x10^3/uL (140-400) Assessment and Plan Assessmemt and Plan Problems Medical Problems: (1) Elevated troponin I level Status: Acute (2) Mild dehydration Status: Acute (3) Neurocardiogenic pre-syncope Status: Acute Comment Review of Relevant I have reviewed the following items jeremy (where applicable) has been applied. Labs Laboratory Tests Test 11/04/19 18:20 11/04/19 18:45 11/04/19 18:59 11/04/19 22:23 White Blood Count 8.5 x10^3/uL (4.0-11.0) Red Blood Count 4.13 x10^6/uL (3.50-5.40) Hemoglobin 12.1 g/dL (12.0-15.5) Hematocrit 36.2 % (36.0-47.0) Mean Corpuscular Volume 88 fL (79-100) Mean Corpuscular Hemoglobin 29 pg (25-35) Mean Corpuscular Hemoglobin Concent 33 g/dL (31-37) Red Cell Distribution Width 14.4 % (11.5-14.5) Platelet Count 224 x10^3/uL (140-400) Neutrophils (%) (Auto) 73 % (31-73) Lymphocytes (%) (Auto) 17 % (24-48) Monocytes (%) (Auto) 8 % (0-9) Eosinophils (%) (Auto) 1 % (0-3) Basophils (%) (Auto) 1 % (0-3) Neutrophils # (Auto) 6.2 x10^3/uL (1.8-7.7) Lymphocytes # (Auto) 1.4 x10^3/uL (1.0-4.8) Monocytes # (Auto) 0.7 x10^3/uL (0.0-1.1) Eosinophils # (Auto) 0.1 x10^3/uL (0.0-0.7) Basophils # (Auto) 0.1 x10^3/uL (0.0-0.2) Prothrombin Time 13.8 SEC (11.7-14.0) Prothromb Time International Ratio 1.1 (0.8-1.1) Activated Partial Thromboplast Time 25 SEC (24-38) Urine Collection Type Unknown Urine Color Yellow Urine Clarity Clear Urine pH 6.0 (<5.0-8.0) Urine Specific Robert Lee 1.015 (1.000-1.030) Urine Protein Negative mg/dL (NEG-TRACE) Urine Glucose (UA) Negative mg/dL (NEG) Urine Ketones (Stick) 40 mg/dL (NEG) Urine Blood Negative (NEG) Urine Nitrite Negative (NEG) Urine Bilirubin Negative (NEG) Urine Urobilinogen Dipstick 0.2 mg/dL (0.2 mg/dL) Urine Leukocyte Esterase Large (NEG) Urine RBC 0 /HPF (0-2) Urine WBC 5-10 /HPF (0-4) Urine Squamous Epithelial Cells Mod /LPF Urine Bacteria Moderate /HPF (0-FEW) Urine Mucus Mod /LPF Urine Test Negative (NEG) Urine Opiates Screen Neg (NEG) Urine Methadone Screen Neg (NEG) Urine Barbiturates Neg (NEG) Urine Phencyclidine Screen Neg (NEG) Urine Amphetamine/Methamphetamine Neg (NEG) Urine Benzodiazepines Screen Neg (NEG) Urine Cocaine Screen Neg (NEG) Urine Cannabinoids Screen Neg (NEG) Urine Ethyl Alcohol Neg (NEG) Sodium Level 139 mmol/L (136-145) Potassium Level 3.8 mmol/L (3.5-5.1) Chloride Level 103 mmol/L (98-107) Carbon Dioxide Level 23 mmol/L (21-32) Anion Gap 13 (6-14) Blood Urea Nitrogen 12 mg/dL (7-20) Creatinine 0.8 mg/dL (0.6-1.0) Estimated GFR (Cockcroft-Gault) 80.3 BUN/Creatinine Ratio 15 (6-20) Glucose Level 117 mg/dL (70-99) Lactic Acid Level 1.9 mmol/L (0.4-2.0) Calcium Level 8.9 mg/dL (8.5-10.1) Magnesium Level 1.9 mg/dL (1.8-2.4) Total Bilirubin 0.5 mg/dL (0.2-1.0) Aspartate Amino Transf (AST/SGOT) 18 U/L (15-37) Alanine Aminotransferase (ALT/SGPT) 21 U/L (14-59) Alkaline Phosphatase 52 U/L (46-116) Troponin I Quantitative 0.071 ng/mL (0.000-0.055) 3.087 ng/mL (0.000-0.055) SR-Dmo-J-Type Natriuretic Peptide 29 pg/mL (0-124) Total Protein 7.2 g/dL (6.4-8.2) Albumin 3.9 g/dL (3.4-5.0) Albumin/Globulin Ratio 1.2 (1.0-1.7) Thyroid Stimulating Hormone (TSH) 2.893 uIU/mL (0.358-3.74) Test 11/05/19 08:05 11/05/19 09:30 11/05/19 20:40 11/06/19 05:30 Heparin Anti-Xa Act, Unfractionated 0.31 IU/mL (0.30-0.70) 0.21 IU/mL (0.30-0.70) 0.49 IU/mL (0.30-0.70) Hemoglobin A1c 5.0 % (4.8-5.6) Troponin I Quantitative 25.974 ng/mL (0.000-0.055) Triglycerides Level 32 mg/dL (0-150) Cholesterol Level 140 mg/dL (0-200) LDL Cholesterol, Calculated 34 mg/dL (0-100) VLDL Cholesterol, Calculated 6 mg/dL (0-40) Non-HDL Cholesterol Calculated 40 mg/dL (0-129) HDL Cholesterol 100 mg/dL (40-60) Cholesterol/HDL Ratio 1.4 SARS-CoV-2 Antigen (Rapid) Negative (NEGATIVE) White Blood Count 7.2 x10^3/uL (4.0-11.0) Red Blood Count 4.39 x10^6/uL (3.50-5.40) Hemoglobin 12.9 g/dL (12.0-15.5) Hematocrit 38.9 % (36.0-47.0) Mean Corpuscular Volume 89 fL (79-100) Mean Corpuscular Hemoglobin 30 pg (25-35) Mean Corpuscular Hemoglobin Concent 33 g/dL (31-37) Red Cell Distribution Width 14.6 % (11.5-14.5) Platelet Count 204 x10^3/uL (140-400) Test 11/06/19 12:10 Heparin Anti-Xa Act, Unfractionated 0.50 IU/mL (0.30-0.70) Laboratory Tests Test 11/05/19 20:40 11/06/19 05:30 11/06/19 12:10 Heparin Anti-Xa Act, Unfractionated 0.21 IU/mL (0.30-0.70) 0.49 IU/mL (0.30-0.70) 0.50 IU/mL (0.30-0.70) White Blood Count 7.2 x10^3/uL (4.0-11.0) Red Blood Count 4.39 x10^6/uL (3.50-5.40) Hemoglobin 12.9 g/dL (12.0-15.5) Hematocrit 38.9 % (36.0-47.0) Mean Corpuscular Volume 89 fL (79-100) Mean Corpuscular Hemoglobin 30 pg (25-35) Mean Corpuscular Hemoglobin Concent 33 g/dL (31-37) Red Cell Distribution Width 14.6 % (11.5-14.5) Platelet Count 204 x10^3/uL (140-400) Microbiology 11/04/19 Urine Culture - Final, Complete Medications Current Medications Sodium Chloride 1,000 ml @ 1,000 mls/hr 1X ONCE IV Last administered on 11/04/19at 18:45; Start 11/04/19 at 18:45; Stop 11/04/19 at 19:44; Status DC Aspirin (Aspirin Chewable) 162 mg 1X ONCE PO ; Start 11/04/19 at 19:45; Stop 11/04/19 at 19:46; Status DC Iohexol (Omnipaque 350 Mg/ml) 100 ml 1X ONCE IV Last administered on 11/04/19at 21:07; Start 11/04/19 at 21:00; Stop 11/04/19 at 21:01; Status DC Info (CONTRAST GIVEN -- Rx MONITORING) 1 each PRN DAILY PRN MC SEE COMMENTS; Start 11/04/19 at 20:45; Stop 11/06/19 at 20:44 Acetaminophen (Tylenol) 650 mg PRN Q4HRS PRN PO FEVER > 100.3'F Last administered on 11/05/19at 15:32; Start 11/04/19 at 20:45; Stop 11/05/19 at 20:44; Status DC Amiodarone HCl 150 mg/Dextrose 103 ml @ 618 mls/hr 1X ONCE IV Last administered on 11/05/19at 00:47; Start 11/05/19 at 01:00; Stop 11/05/19 at 02:12; Status DC Amiodarone HCl 450 mg/Dextrose 259 ml @ 0 mls/hr CONT PRN IV SEE I/O RECORD Last administered on 11/05/19at 09:55; Start 11/05/19 at 01:00; Stop 11/05/19 at 10:02; Status DC Heparin Sodium/ Dextrose 250 ml @ 0 mls/hr CONT PRN IV PER PROTOCOL Last administered on 11/05/19at 22:47; Start 11/05/19 at 00:30 Heparin Sodium (Porcine) (Heparin Sodium) 1,750 unit PRN Q6HRS PRN IV FOR UFH LEVEL LESS THAN 0.2; Start 11/05/19 at 00:30 Info (Anti-Coagulation Monitoring By Pharmacy) 1 each PRN DAILY PRN MC SEE COMMENTS Last administered on 11/05/19at 00:39; Start 11/05/19 at 00:45 Magnesium Sulfate 50 ml @ 25 mls/hr 1X ONCE IV Last administered on 11/05/19at 09:54; Start 11/05/19 at 09:45; Stop 11/05/19 at 11:44; Status DC Iohexol (Omnipaque 300 Mg/ml) 100 ml STK-MED ONCE .ROUTE ; Start 11/05/19 at 10:35; Stop 11/05/19 at 10:36; Status DC Lidocaine HCl (Lidocaine 1% 20ml Vial) 20 ml STK-MED ONCE .ROUTE ; Start 11/05/19 at 10:35; Stop 11/05/19 at 10:36; Status DC Heparin Sodium/ Sodium Chloride 1,500 ml @ As Directed STK-MED ONCE .ROUTE ; Start 11/05/19 at 10:35; Stop 11/05/19 at 10:36; Status DC Fentanyl Citrate (Fentanyl 2ml Vial) 100 mcg STK-MED ONCE .ROUTE ; Start 11/05/19 at 10:48; Stop 11/05/19 at 10:48; Status DC Midazolam HCl (Versed) 5 mg STK-MED ONCE .ROUTE ; Start 11/05/19 at 10:48; Stop 11/05/19 at 10:49; Status DC Heparin Sodium/ Sodium Chloride (HEPARIN for ARTERIAL LINE FLUSH) 1,000 unit 1X ONCE IART Last administered on 11/05/19at 11:52; Start 11/05/19 at 11:30; Stop 11/05/19 at 11:42; Status DC Heparin Sodium/ Sodium Chloride (HEPARIN for ARTERIAL LINE FLUSH) 1,000 unit 1X ONCE IART Last administered on 11/05/19at 11:52; Start 11/05/19 at 11:30; Stop 11/05/19 at 11:42; Status DC Midazolam HCl (Versed) 5 mg 1X ONCE IV Last administered on 11/05/19at 11:55; Start 11/05/19 at 11:30; Stop 11/05/19 at 11:42; Status DC Fentanyl Citrate (Fentanyl 2ml Vial) 100 mcg 1X ONCE IV Last administered on 11/05/19at 11:55; Start 11/05/19 at 11:30; Stop 11/05/19 at 11:42; Status DC Iohexol (Omnipaque 300 Mg/ml) 100 ml 1X ONCE IART Last administered on 11/05/19 at 11:52; Start 11/05/19 at 11:30; Stop 11/05/19 at 11:42; Status DC Lidocaine HCl (Lidocaine 1% 20ml Vial) 20 ml 1X ONCE INJ Last administered on 11/05/19at 11:52; Start 11/05/19 at 11:30; Stop 11/05/19 at 11:42; Status DC Info (CONTRAST GIVEN -- Rx MONITORING) 1 each PRN DAILY PRN MC SEE COMMENTS; Start 11/05/19 at 11:45; Stop 11/07/19 at 11:44 Sodium Chloride (Normal Saline Flush) 3 ml QSHIFT PRN IV AFTER MEDS AND BLOOD DRAWS; Start 11/05/19 at 12:00 Sodium Chloride 1,000 ml @ 75 mls/hr [id number] IV Last administered on 11/05/19at 14:56; Start 11/05/19 at 12:00; Stop 11/05/19 at 19:59; Status DC Aspirin (Ecotrin) 81 mg [id number] PO Last administered on 11/06/19at 10:03; Start 11/06/19 at 08:00 Metoprolol Tartrate (Lopressor) 12.5 mg BID PO Last administered on 11/06/19at 10:03; Start 11/05/19 at 21:00 Nitroglycerin (Nitrostat) 0.4 mg PRN Q5MIN PRN SL CHEST PAIN; Start 11/05/19 at 12:00 Amiodarone HCl 450 mg/Dextrose 259 ml @ 0 mls/hr CONT PRN IV SEE I/O RECORD Last administered on 11/06/19at 01:47; Start 11/05/19 at 13:00 Methocarbamol (Robaxin) 750 mg PRN Q6HRS PRN PO MUSCLE SPASMS; Start 11/05/19 at 14:30 Atorvastatin Calcium (Lipitor) 10 mg QHS PO Last administered on 11/05/19at 20:51; Start 11/05/19 at 21:00 Acetaminophen (Tylenol) 650 mg PRN Q4HRS PRN PO pain Last administered on 11/05/19at 22:43; Start 11/05/19 at 22:30 Amiodarone HCl (Cordarone) 400 mg DAILY PO Last administered on 11/06/19at 12:18; Start 11/06/19 at 11:00 Clopidogrel Bisulfate (Plavix) 75 mg DAILYWBKFT PO Last administered on 11/06/19at 12:18; Start 11/06/19 at 11:00 Active Scripts Active Reported Ibuprofen 200 Mg Tablet 200 Mg PO PRN Q6HRS PRN Acetaminophen 500 Mg Tablet 500 Mg PO PRN Q4HRS PRN Vitals/I & O Vital Sign - Last 24 Hours 11/05/19 11/05/19 11/05/19 11/05/19 13:40 14:10 15:00 15:10 Temp 98.2 98.2 Pulse 83 70 78 70 Resp 18 18 18 18 B/P (MAP) 99/51 (67) Pulse Ox 99 99 100 100 O2 Delivery Room Air Room Air Room Air Room Air 11/05/19 11/05/19 11/05/19 11/05/19 16:10 17:10 18:10 19:00 Temp 97.9 97.9 Pulse 67 67 67 90 Resp 18 18 18 18 B/P (MAP) 104/53 (70) Pulse Ox 100 100 100 96 O2 Delivery Room Air Room Air Room Air Room Air 11/05/19 11/05/19 11/05/19 11/06/19 20:00 20:51 23:00 03:10 Temp 98.1 98.0 98.1 98.0 Pulse 67 70 71 Resp 18 18 B/P (MAP) 104/53 112/54 (73) 114/59 (77) Pulse Ox 96 98 O2 Delivery Room Air Room Air Room Air 11/06/19 11/06/19 11/06/19 11/06/19 07:00 08:00 10:03 11:00 Temp 98.0 98.5 98.0 98.5 Pulse 75 80 65 Resp 18 20 B/P (MAP) 114/57 (76) 110/49 (69) Pulse Ox 99 100 O2 Delivery Room Air Room Air Room Air 11/06/19 12:18 Pulse 65 Intake and Output 11/05/19 11/05/19 11/06/19 15:00 23:00 07:00 Intake Total 300 ml 700 ml 100 ml Output Total 700 ml Balance -400 ml 700 ml 100 ml Justicifation of Admission Dx: Justifications for Admission: Justification of Admission Dx: Yes RIKKI BUNN MD Nov 06, 2019 13:26
--- NOTE | 2019-11-06 13:32 | PDOC ---
CARDIO Progress Notes Date and Time Date of Service 11/06/2019 Time of Evaluation 1010 Subjective Subjective: No Chest Pain, No shortness of breath, No Palpitations Vitals Vitals Vital Signs Date Time Temp Pulse Resp B/P (MAP) Pulse Ox O2 Delivery O2 Flow Rate FiO2 11/06/19 12:18 65 11/06/19 11:00 98.5 20 110/49 (69) 100 Room Air 98.5 11/05/19 11:55 2.0 Weight Weight [ ] Input and Output Intake and Output Intake and Output 11/06/19 07:00 Intake Total 1100 ml Output Total 700 ml Balance 400 ml Intake Oral 1100 ml Output Urine Total 700 ml # Voids 3 Laboratory Labs Laboratory Tests Test 11/05/19 20:40 11/06/19 05:30 11/06/19 12:10 Heparin Anti-Xa Act, Unfractionated 0.21 IU/mL (0.30-0.70) 0.49 IU/mL (0.30-0.70) 0.50 IU/mL (0.30-0.70) White Blood Count 7.2 x10^3/uL (4.0-11.0) Red Blood Count 4.39 x10^6/uL (3.50-5.40) Hemoglobin 12.9 g/dL (12.0-15.5) Hematocrit 38.9 % (36.0-47.0) Mean Corpuscular Volume 89 fL (79-100) Mean Corpuscular Hemoglobin 30 pg (25-35) Mean Corpuscular Hemoglobin Concent 33 g/dL (31-37) Red Cell Distribution Width 14.6 % (11.5-14.5) Platelet Count 204 x10^3/uL (140-400) Microbiology Micro Microbiology 11/04/19 Urine Culture - Final, Complete Physical Exam HEENT: Neck Supple W Full Motion Chest: Symmetric LUNGS: Clear to Auscultation Heart: S1S2, RRR (SR) Abdomen: Soft N/T Extremities: No Edema, No Calf Tenderness Neurology: alert, oriented, follow commands Other Exams right groin arteriotomy site intact, no erythema, swelling, neurovascular status to bilateral LE intact Assessment Assessment 1. NSTEMI: small distal LCx representing SCAD per [facility] 2. New RBBB: trop peaked at 26. EF and WM nml 3. Excessive caffeine use 4. NSVT: none further overnight 5. UTI: per PCP Recommendations 1. DC heparin. ASA/plavix. Due to its small distal location with limited post lesion flow and the possibility of a dissection we will initially treat the lesion medically 2. Continue amiodarone 400 mg daily. Although lipids are well controlled with HDL at [address] on low dose lipitor to promote endothelial stability 3. Continue low dose metoprolol 4. Discussed significant curbing of caffeinated beverages and at this time to avoid exertion that promotes significant increase in intraabdominal/thoracic pressure until cleared on follow up 5. Monitor rhythm and anticipate DC tomorrow. 6. Pt does not have plans to have children. Discussed need of contraception given the use of amiodarone and lipitor. Justicifation of Admission Dx: Justifications for Admission: Justification of Admission Dx: Yes DAY DE ANDA CLAIM PROCESSOR Nov 06, 2019 13:32
[2019-11-06 14:15] LABS: CALCIUM 7.9 mg/dL (8.5-10.1); CREATININE 0.9 mg/dL (0.6-1.0); GFR 70.1; POTASSIUM 3.9 mmol/L (3.5-5.1)
[2019-11-06 15:00] VITALS: BP 101/46
[2019-11-06 19:50] VITALS: BP 98/48
[2019-11-06] MEDS: ATORVASTATIN CALCIUM 10 MG TABLET. PO SCH (21:42)
[2019-11-06 22:33] VITALS: BP 107/43
[2019-11-07 02:25] VITALS: BP 110/47
[2019-11-07 07:00] VITALS: BP 98/56
[2019-11-07] MEDS ORDERED: POLYETHYLENE GLYCOL 3350 17 GM PACKET. PO PRN (07:30)
--- NOTE | 2019-11-07 08:21 | PDOC ---
CARDIO Progress Notes Date and Time Date of Service 11/07/2019 Time of Evaluation 1005 Subjective Subjective: No Chest Pain, No shortness of breath, No Palpitations Vitals Vitals Vital Signs Date Time Temp Pulse Resp B/P (MAP) Pulse Ox O2 Delivery O2 Flow Rate FiO2 11/07/19 07:00 98.4 75 18 98/56 (70) 98 Room Air 98.4 Weight Weight [ ] Input and Output Intake and Output Intake and Output 11/07/19 07:00 Intake Total 2090 ml Balance 2090 ml Intake Oral 2090 ml # Voids 6 Laboratory Labs Laboratory Tests Test 11/06/19 12:10 Heparin Anti-Xa Act, Unfractionated 0.50 IU/mL (0.30-0.70) Sodium Level 140 mmol/L (136-145) Potassium Level 3.9 mmol/L (3.5-5.1) Chloride Level 106 mmol/L (98-107) Carbon Dioxide Level 25 mmol/L (21-32) Anion Gap 9 (6-14) Blood Urea Nitrogen 7 mg/dL (7-20) Creatinine 0.9 mg/dL (0.6-1.0) Estimated GFR (Cockcroft-Gault) 70.1 Glucose Level 119 mg/dL (70-99) Calcium Level 7.9 mg/dL (8.5-10.1) Magnesium Level 2.0 mg/dL (1.8-2.4) Microbiology Micro Microbiology 11/04/19 Urine Culture - Final, Complete Physical Exam HEENT: Neck Supple W Full Motion Chest: Symmetric LUNGS: Clear to Auscultation Heart: S1S2, RRR (SR) Abdomen: Soft N/T Extremities: No Edema, No Calf Tenderness Neurology: alert, oriented, follow commands Assessment Assessment 1. NSTEMI: small distal LCx representing SCAD per [facility] 2. New RBBB: trop peaked at 26. EF and WM nml 3. Excessive caffeine use 4. NSVT: none further in the last 48 hrs 5. UTI: per PCP Recommendations 1. ASA/plavix. Due to its small distal location with limited post lesion flow and the possibility of a dissection we will initially treat the lesion medically. Outpt referral to [facility] specialty group 2. Continue amiodarone 400 mg daily. Although lipids are well controlled with HDL at [address] on low dose lipitor to promote endothelial stability 3. Continue low dose metoprolol 4. Discussed significant curbing of caffeinated beverages and at this time to avoid exertion that promotes significant increase in intraabdominal/thoracic pressure until cleared on follow up 5. Pt does not have plans to have children. Discussed need of contraception given the use of amiodarone and lipitor. 6. Follow up in office in 3 weeks. Justicifation of Admission Dx: Justifications for Admission: Justification of Admission Dx: Yes DAY DE ANDA LEADER TIER Nov 07, 2019 08:21
[2019-11-07] MEDS: ASPIRIN ENTERIC COATED 81 MG TABLET.DR. PO SCH (09:03)
[2019-11-07] MEDS: CLOPIDOGREL BISULFATE 75 MG TABLET PO SCH (09:04)
[2019-11-07] MEDS: AMIODARONE HCL 200 MG TABLET. PO SCH (09:04)
[2019-11-07] MEDS: METOPROLOL TART IMMED RELEASE 25 MG TABLET. PO SCH (09:04)
[2019-11-07 09:09] VITALS: BP 111/51
--- NOTE | 2019-11-07 10:15 | NUR ---
SS following up with discharge planning. SS reviewed pt chart and discussed with pt RN. Pt is currently on room air. Pt now on PO medications. Discharge plan is to home when medically ready. Possible discharge to home today. SS will continue to follow for discharge planning.
[2019-11-07 11:00] VITALS: BP 108/53
[2019-11-07] MEDS ORDERED: ATOR10TA60 PO (11:03)
[2019-11-07] MEDS ORDERED: AMIO200T7 PO (11:03)
[2019-11-07] MEDS ORDERED: CLOP75TA PO (11:03)
[2019-11-07] MEDS ORDERED: METO25TA4 PO (11:03)
--- NOTE | 2019-11-07 11:08 | PDOC3 ---
Discharge Summary Visit Information Date of Admission: Nov 05, 2019 Date of Discharge: Nov 07, 2019 Admitting Diagnosis Comment: Non-STEMI with possible aortic dissection New right bundle branch block Troponin elevation at 26 History of excessive caffeine use Nonsustained V. tach Asymptomatic bacteriuria Final Diagnosis Problems Medical Problems: (1) Elevated troponin I level Status: Acute (2) Mild dehydration Status: Acute (3) Neurocardiogenic pre-syncope Status: Acute Non-STEMI with spontaneous coronary artery dissection New right bundle branch block Troponin elevation at 26 History of excessive caffeine use Nonsustained V. tach Asymptomatic bacteriuria Brief Hospital Course Allergies Allergies Coded Allergies Type Severity Reaction Last Updated Verified No Known Drug Allergies 11/04/19 No Vital Signs Vital Signs Date Time Temp Pulse Resp B/P (MAP) Pulse Ox O2 Delivery O2 Flow Rate FiO2 11/07/19 09:09 88 111/51 (71) 11/07/19 08:00 Room Air 11/07/19 07:00 98.4 18 98 98.4 Lab Results Laboratory Tests Test 11/05/19 20:40 11/06/19 05:30 11/06/19 12:10 Heparin Anti-Xa Act, Unfractionated 0.21 IU/mL (0.30-0.70) 0.49 IU/mL (0.30-0.70) 0.50 IU/mL (0.30-0.70) White Blood Count 7.2 x10^3/uL (4.0-11.0) Red Blood Count 4.39 x10^6/uL (3.50-5.40) Hemoglobin 12.9 g/dL (12.0-15.5) Hematocrit 38.9 % (36.0-47.0) Mean Corpuscular Volume 89 fL (79-100) Mean Corpuscular Hemoglobin 30 pg (25-35) Mean Corpuscular Hemoglobin Concent 33 g/dL (31-37) Red Cell Distribution Width 14.6 % (11.5-14.5) Platelet Count 204 x10^3/uL (140-400) Sodium Level 140 mmol/L (136-145) Potassium Level 3.9 mmol/L (3.5-5.1) Chloride Level 106 mmol/L (98-107) Carbon Dioxide Level 25 mmol/L (21-32) Anion Gap 9 (6-14) Blood Urea Nitrogen 7 mg/dL (7-20) Creatinine 0.9 mg/dL (0.6-1.0) Estimated GFR (Cockcroft-Gault) 70.1 Glucose Level 119 mg/dL (70-99) Calcium Level 7.9 mg/dL (8.5-10.1) Magnesium Level 2.0 mg/dL (1.8-2.4) Laboratory Tests Test 11/06/19 12:10 Heparin Anti-Xa Act, Unfractionated 0.50 IU/mL (0.30-0.70) Sodium Level 140 mmol/L (136-145) Potassium Level 3.9 mmol/L (3.5-5.1) Chloride Level 106 mmol/L (98-107) Carbon Dioxide Level 25 mmol/L (21-32) Anion Gap 9 (6-14) Blood Urea Nitrogen 7 mg/dL (7-20) Creatinine 0.9 mg/dL (0.6-1.0) Estimated GFR (Cockcroft-Gault) 70.1 Glucose Level 119 mg/dL (70-99) Calcium Level 7.9 mg/dL (8.5-10.1) Magnesium Level 2.0 mg/dL (1.8-2.4) Brief Hospital Course History of Present Illness History of Present Illness Patient is a 39-year-old female with no significant past medical history who was in her usual state of health until approximately 2 weeks prior to her admission when she started complaining of palpitations and lightheadedness. The patient described the pain review of systems pertinent as per HPI otherwise 14 point review of system is negative a sharp discomfort over the precordial area that radiated to the back and no radiation to the jaw or the arm was reported. This was in the setting of exercising and an elliptical machine. The patient denied any dyspnea on exertion she denied orthopnea paroxysmal nocturnal dyspnea. Patient did not have sensation of impending doom or diaphoresis with the event. Patient denies loss of consciousness no neurological deficits no dysphagia odynophagia no abdominal pain no nausea vomiting diarrhea and no urinary sympto ms either. Patient had progressive nature of her symptoms and decided to consult the emergency department where she was found to have an elevated troponin and he was evaluated by cardiology very promptly and taken to the cardiac Privacy Attorney for evaluation She was promptly taken to the cardiac Privacy Attorney where she was evaluated by Dr. Perez. She was found to have a small distal left circumflex representing spontaneous coronary artery dissection and she was advised to continue on amiodarone aspirin Plavix and low-dose metoprolol. Lipids were well controlled with HDL of 100 but Lipitor was also encourage for endothelial stability as per our business process consultant. Patient was given instructions to decrease the amount of caffeinated beverages that she ingests and closed follow-up with a specialist in the outside facility will be given by our oracle database consultant. Patient is in good spirits to be just charge in in good spirits to be going home later in the day. All of her concerns were addressed to the best of my abilities Assessment Assessment ECHO <Conclusion> The left ventricle is normal size. The left ventricular systolic function is normal and the ejection fraction is within normal range. The Ejection Fraction is 50-55%. There is normal LV segmental wall motion. Doppler and Color Flow revealed no significant aortic regurgitation. There is no significant aortic valvular stenosis. Doppler and Color-flow revealed trace mitral regurgitation. Doppler and Color Flow revealed trace tricuspid regurgitation with an estimated PAP of 23 mmHg. Signed by : Jarod Judd MD Electronically Approved : 11/06/2019 12:24:40 Physical Exam HEENT: Neck Supple W Full Motion Chest: Symmetric LUNGS: Clear to Auscultation Heart: S1S2, RRR (SR) Abdomen: Soft N/T Extremities: No Edema, No Calf Tenderness Neurology: alert, oriented, follow commands Other Exams right groin arteriotomy site intact, no erythema, swelling, neurovascular status to bilateral LE intact Discharge Information Condition at Discharge: Improved Follow Up: Weeks Disposition/Orders: D/C to Home Scheduled Amiodarone Hcl (Pacerone) 200 Mg Tablet, 400 MG PO DAILY for anit arrhytmic for 30 Days, #60 Prescribed by: RIKKI BUNN MD on 11/07/19 1103 Atorvastatin Calcium (Atorvastatin Calcium) 10 Mg Tablet, 10 MG PO QHS for dyslipidemia for 30 Days, #30 Prescribed by: RIKKI BUNN MD on 11/07/19 1103 Clopidogrel Bisulfate (Clopidogrel) 75 Mg Tablet, 75 MG PO [id number] for antiplatelet for 30 Days, #30 Prescribed by: RIKKI BUNN MD on 11/07/19 1103 Metoprolol Tartrate (Metoprolol Tartrate) 25 Mg Tablet, 12.5 MG PO BID for rate control for 30 Days, #30 Prescribed by: RIKKI BUNN MD on 11/07/19 1103 Scheduled PRN Acetaminophen (Acetaminophen) 500 Mg Tablet, 500 MG PO PRN Q4HRS PRN for PAIN, (Reported) Entered as Reported by: Taya Hawk on 11/04/192324 Last Action: New Order on 11/04/192324 by Taya Hawk Ibuprofen (Ibuprofen) 200 Mg Tablet, 200 MG PO PRN Q6HRS PRN for INFLAMMATION, (Reported) Entered as Reported by: Taya Hawk on 11/04/192324 Last Action: New Order on 11/04/192324 by Taya Hawk Justicifation of Admission Dx: Justifications for Admission: Justification of Admission Dx: Yes RIKKI BUNN MD Nov 07, 2019 11:08
[2019-11-07] MEDS ORDERED: ASPI-630 PO (11:22)
--- NOTE | 2019-11-07 12:19 | NUR ---
Discharge: Teaching verbal and written. Reviewed medication, follow-up, troponin, event monitor, cardiac cath, new medications, ect. patient and verbalized understanding. IV removed without complications, catheter tip in-tact. All belongings with patient. Follow-up appointment set. Event monitor will be mailed to house per Rodolfo.
--- NOTE | 2019-11-07 12:40 | NUR ---
Discharge: Patient ambulated off of unit via wheelchair accompanied by OFFSET LABEL REWINDER and patients
== END 2019-11-07 12:40 | disposition home or self-care (01) | DRG 280 ==
LOC: ER 18:04 → 2 NORTH 20:58 → OBSVTOIN 11-05 07:50
PROVIDERS: ADMIT Internal Medicine; ATTEND Internal Medicine
PROC: 4A023N7 Measurement of Cardiac Sampling and Pressure, Left Heart, Percutaneous Approach (ICD-10-PCS; principal; 2019-11-05)
PROC: B2111ZZ Fluoroscopy of Multiple Coronary Arteries using Low Osmolar Contrast (ICD-10-PCS; 2019-11-05)
DX: I21.4 Non-ST elevation (NSTEMI) myocardial infarction (principal); I25.42 Coronary artery dissection; I47.2 Ventricular tachycardia; N39.0 Urinary tract infection, site not specified; E86.0 Dehydration; I25.10 Atherosclerotic heart disease of native coronary artery without angina pectoris; I25.2 Old myocardial infarction; I45.10 Unspecified right bundle-branch block; F41.9 Anxiety disorder, unspecified; Z79.899 Other long term (current) drug therapy; Z20.828 Contact with and (suspected) exposure to other viral communicable diseases
CPT/HCPCS: 93454; G0269; 36415; 71046; 71275; 80048; 80053; 80061; 80307; 81001; 81025; 83036; 83605; 83735; 83880; 84443; 84484; 85025; 85027; 85520; 85610; 85730; 87086; 87426; 93005; 93306; 99152; 99153; C1760; C1769; C1892; G0378; G0379; J0282; J1644; J2250; J3010; J3475; J3490; J7030; J7060; Q9967; C1771; U0003-CS